=== PATIENT | female | born 1935 | race Caucasian/White ===

== ENCOUNTER 2016-07-18 15:54 | Inpatient (IN) | payer MEDICARE, BC ==
--- NOTE | 2016-07-18 16:10 | Emergency Department Record ---
History of Present Illness - General Chief complaint: Swelling of legs Stated complaint: INFECTION Time Seen by Provider: 07/18/16 16:09 Source: Patient Mode of Arrival: Ambulatory Limitations: No limitations - History of Present Illness Initial comments: The patient is here due to redness and swelling to her L lower leg. She has had a chronic wound to the L 2nd toe and lately it has begun to look worse and appear infected. She did see her PCP in the family practice clinic 5 days ago and was started on Cefdinir. Now the L lower leg is more swollen, and erythematous. She denies any fever, chills, CP, SOB, or AP. The patient was seen in the and sent to the Er. MD Complaint: Extremity swelling Onset/Timin -: Days(s) Location: Left, Lower Leg History of Same: No Radiation: None Severity scale (1-10): 8 Quality: Sharp Consistency: Constant Improves with: Nothing Worsens with: Walking, Weight bearing Associated Symptoms: Denies other symptoms - Related Data Home Medications Medication Instructions Recorded Confirmed Last Taken Dilaudid Pump 1 mg IV DAILY 02/14/14 07/18/16 12/01/14 Sennosides/Docusate Sodium [Senna 2 each PO BID 02/23/15 07/18/16 Unknown Plus] Esomeprazole Magnesium [Nexium 22.3 mg PO DAILY cap 06/07/16 07/18/16 Unknown 24hr] Allergies Allergy/AdvReac Type Severity Reaction Status Date / Time adhesive Allergy Intermediate RASH Unverified 07/13/16 16:24 phenobarbital Allergy Intermediate RASH Unverified 07/13/16 16:24 Sulfa (Sulfonamide Allergy Intermediate VOMITING Unverified 07/13/16 16:24 Antibiotics) Penicillins AdvReac Intermediate NAUSEA AND Unverified 07/13/16 16:24 VOMITING Travel Screening - Travel/Exposure Within Last 30 Days Have you traveled within the last 30 days?: No Review of Systems Constitutional: Denies: Chills, Fever Eyes: Denies: Eye discharge ENT: Denies: Congestion Respiratory: Denies: Cough Past Medical History - SOCIAL HISTORY Smoking Status: Former smoker Alcohol Use: None Drug Use: None - RESPIRATORY Hx Respiratory Disorders: Yes Hx Asthma: Yes Hx COPD: Yes Comment:: allergies cause cough occas - CARDIOVASCULAR Hx Cardio Disorders: Yes Hx Abnormal EKG: Yes Hx Cardiac Cath: Yes (cardiac stents x3) Hx Chest Pain: Yes (2002; 2003; and has angina-last used NTG '2 DAYS AGO) Hx CHF: Yes Hx Edema: Yes (feet) Hx Heart Attack: Yes (2003) Hx Hypertension: Yes (good control w meds) Hx Hypotension: Yes ("occas gets pretty low") Comment:: high cholesterol - NEURO Hx Neuro Disorders: Yes Hx Seizures: No - GI Hx GI Disorders: Yes Hx Abdominal Pain: Yes Hx Diverticulitis: Yes Hx Reflux: Yes Hx Irritable Bowel: Yes Hx Nausea/Vomiting: Yes Comment:: Lupus - Hx Genitourinary Disorders: Yes Hx Bladder Problem: Yes (leaky bladder) Hx Renal Disease: Yes Hx UTI: Yes Comment:: vidal cath removed 01/07 - ENDOCRINE Hx Endocrine Disorders: Yes Hx Diabetes: No - MUSCULOSKELETAL Hx Musculoskeletal Disorders: Yes Hx Arthritis: Yes (hips/knees/back) Hx Fibromyalgia: Yes Hx Gout: Yes Hx Musculoskeletal Disease: Yes ("sharko disease"-feet) Hx Osteoporosis: Yes (was 5'11") Comment:: back problems; leg pains, fracture right ankle - PSYCH Hx Psych Problems: Yes Hx Depression: Yes - HEMATOLOGY/ONCOLOGY Hx Hematology/Oncology Disorders: No Family Medical History Any Significant Family History?: Yes Hx Cancer: Father, Mother, Brother/Sister Hx Dementia: Mother Hx Heart Disease: Father Hx HTN: Father Physical Exam - General General Appearance: Alert, Oriented x3, Cooperative, No acute distress - Head Head exam: Atraumatic, Normocephalic - Eye Eye exam: Normal appearance, PERRL - Neck Neck exam: Normal inspection, Full ROM. negative: Tenderness - Respiratory Respiratory exam: Normal lung sounds bilaterally. negative: Respiratory distress - Cardiovascular Cardiovascular Exam: Regular rate, Normal rhythm, Normal heart sounds - Extremities Extremities exam: negative: Normal inspection (The patient has a L Charcot foot. There is a chronic wound to the medial L 2nd toe with mild L foot swelling and erythema. The L lower leg is mildly swollen and intermittently erythematous and warm. There is no thign, posterior knee or calf tenderness.) Course Vital Signs 07/18/16 15:58 Temperature 98.4 F Pulse Rate 70 Respiratory 20 Rate Blood Pressure 166/65 Pulse Ox 92 L - Reevaluation(s) Reevaluation #1: The patient is doing well. She denies any new issues or problems. I did discuss the lab and xray results with the patient and did discuss the need for hospital admission. I also did discuss the case with Dr. Platt and she accepts the admission. 07/18/16 17:28 Medical Decision Making - Data Complexity MDM Data: Labs Ordered and/or Reviewed, X-Ray Ordered and/or Reviewed - Lab Data Result diagrams: 07/18/16 16:20 07/18/16 16:20 - Radiology Data Radiology results: Report reviewed (L foot: chronic changes with no obvious osteomyelitis or fx or dislocation.) Disposition Disposition: Admit Clinical Impression: Left leg cellulitis Disposition: Still a Patient at [facility] Decision to Admit: Admit from ER Decision to Admit Date: 07/18/16 Decision to Admit Time: 17:30 Accepting Physician: Giulia Time Discussed w/Accepting Physician: 17:30 Condition: (2) Stable Forms: Patient Portal Access Time of Disposition: 17:30
[2016-07-18] MEDS ORDERED: CLINDAMYCIN 600MG/4ML VIAL 600 MG in 0.9 % SODIUM CHLORIDE 100ML 100 ML IV ONE (16:14)
[2016-07-18 16:30] LABS: BASO % 0.3 % (0-6); EOS % 1.5 % (0-6); GRAN % 54.5 % (47-80); HEMATOCRIT 39.2 % (35.0-47.0); HEMOGLOBIN 12.1 gm/dl (11.6-16.0); LYMPH % 36.2 % (16-45); MEAN CELL VOLUME 93.1 fl (81-97); MEAN CORPUSCULAR HEMOGLOBIN 28.7 pg (27-33); MEAN CORPUSCULAR HGB CONC 30.9 g/dl (32-36); MEAN PLATELET VOLUME 9.1 fl (7.4-10.4); MONO % 7.5 % (0-9); PLATELET COUNT 254 K/uL (130-400); RED BLOOD COUNT 4.21 M/uL (3.80-5.40); RED CELL DISTRIBUTION WIDTH 17.4 % (11.5-14.5); WHITE BLOOD COUNT W/O DIFF 8.6 K/uL (4.2-12.2)
[2016-07-18 16:45] LABS: ANION GAP 8.9 (7-16); BLOOD UREA NITROGEN 10 mg/dL (7-17); C-REACTIVE PROTEIN 3.2 mg/dL (0.0-0.9); CARBON DIOXIDE 37.1 mmol/L (22-30); CREATININE 0.7 mg/dL (0.52-1.04); EST GLOMERULAR FILTRATION RATE > 60 ml/min; GLUCOSE,RANDOM 132 mg/dL (70-110)
[2016-07-18 17:06] LABS: ERYTHROCYTE SEDIMENTATION RATE 21 mm/hr (0-30)
[2016-07-18 18:14] LABS: URINE APPEARANCE CLEAR; URINE BILIRUBIN NEGATIVE (NEGATIVE); URINE BLOOD NEGATIVE (NEGATIVE); URINE COLOR YELLOW; URINE GLUCOSE (UA) NEGATIVE (NEGATIVE); URINE KETONE NEGATIVE (NEGATIVE); URINE LEUKOCYTE ESTERASE SMALL (NEGATIVE); URINE NITRITE NEGATIVE (NEGATIVE); URINE PROTEIN NEGATIVE (NEGATIVE); URINE UROBILINOGEN 0.2 E.U./dL (0.20 - 1.00)
[2016-07-18 18:21] LABS: URINE RBC NONE SEEN (NONE SEEN)
[2016-07-18 18:22] LABS: URINE BACTERIA NONE SEEN
[2016-07-18] MEDS ORDERED: ACETAMINOPHEN 500 MG TABLET PO PRN (19:09)
[2016-07-18] MEDS ORDERED: PREGABALIN 50 MG CAPSULE PO PRN (19:09)
[2016-07-18] MEDS ORDERED: HYDROXYZINE PAMOATE 25 MG CAPSULE PO PRN (20:05)
[2016-07-18] MEDS: TRAZODONE 50 MG TABLET PO SCH (22:38)
[2016-07-18] MEDS: BACLOFEN 10 MG TABLET PO SCH (22:39)
[2016-07-18] MEDS: SENNOSIDES/DOCUSATE SODIUM UD CAPSULE PO SCH (22:51)
[2016-07-19] MEDS: CLINDAMYCIN 600MG/50ML PREMIX 600 MG/50 ML BAG IVPB SCH ×4 (01:33→23:45)
[2016-07-19] MEDS: PANTOPRAZOLE SODIUM 40 MG TABLET PO SCH (06:24)
[2016-07-19] MEDS: LEVOTHYROXINE SODIUM 75 MCG TABLET PO SCH (06:24)
--- NOTE | 2016-07-19 06:41 | History & Physical ---
History of Present Illness - Date of Service Date of Service for History & Physical: 07/19/16 - History of Present Illness Admitting Diagnosis: 1. Left Leg Cellulitis. History of Present Illness: 81 yo female admitted for LLE cellulitis. PMHx of recurrent osteomyelitis, CHF , CAD, hyperlipidemia, fibromyalgia, current hardward in right foot for trimalleolar fracture, charcot-dinah tooth and TIA in 2013. Previous cardiac stent in 2002 and 2003. Pt has pain pump that was placed 10/2014. Former smoker , quit 30 years ago. Patient presented to our [facility] Department with <24 hours of LLE swelling and erythema. Patient was then directed to our ED for further medical management. Upon presentation to the ED, VSS. afebrile. wbc 8.6. crp 3.2. Left foot x ray: diffuse osteopenia, no acute fx, soft tissue swelling of the first and second digits suspicious for cellulitis. soft tissue swelling of the ankle and hindfoot. Prior to this visit, patient was seen 07/18 in the office and started on Cedinir for suspected early pyelonephritis. In the ED, patient started on IV Clindamycin [address] Sandhu (patient's measurement specialist) consulted and patient admitted for further medical management. This morning, patient lying in bed comfortably with at bedside. Afebrile. She states she feels well. Her LLE swelling and erythema have significantly improved, per . She denies fever, chills, n/v, change in bowel habits, sob, cough, cp or abdominal pain. Tolerating meals well. Patient' s currently on Cefdinir 300 mg BID for suspected pyelonephritis. She denies any pain with urination or hematuria. In addition, patient has two ulcers noted on the left foot. One located on the medial aspect of the left arch and the other on the medial aspect of the left 2nd digit. Patient has wound care coming out to her house for regular treatment /dressing changes. PCP: Deena Aguero PA-C Travel Screening - Travel/Exposure Within Last 30 Days Have you traveled within the last 30 days?: No - Travel/Exposure Within Last Year Have you traveled outside the [place] in the last year?: No - Additonal Travel Details Have you been exposed to anyone with a communicable illness?: No - Travel Symptoms Symptom Screening: None Review of Systems Constitutional: Denies: Chills, Fever Eyes: Denies: Eye discharge ENT: Denies: Congestion Respiratory: Denies: Cough Cardiovascular: Denies: Chest pain, Dyspnea on exertion Gastrointestinal: Denies: Abdominal pain, Constipation, Diarrhea, Nausea Musculoskeletal: Reports: Gout (history of) Skin: Reports: Change in color (LLE erythema), Other (ulcer to the arch of left foot, ulcer 2nd digit medial aspect) Neurological: Denies: Abnormal gait, Confusion Hematological/Lymphatic: Denies: Anemia Past Medical History - SOCIAL HISTORY Smoking Status: Former smoker - RESPIRATORY Hx Respiratory Disorders: Yes Hx Asthma: Yes Hx COPD: Yes Comment:: allergies cause cough occas - CARDIOVASCULAR Hx Cardio Disorders: Yes Hx Abnormal EKG: Yes Hx Cardiac Cath: Yes (cardiac stents x3) Hx Chest Pain: Yes (2002; 2003; and has angina-last used NTG '2 DAYS AGO) Hx CHF: Yes Hx Edema: Yes (feet) Hx Heart Attack: Yes (2003) Hx Hypertension: Yes (good control w meds) Hx Hypotension: Yes ("occas gets pretty low") Comment:: high cholesterol - NEURO Hx Neuro Disorders: Yes Hx Seizures: No - GI Hx GI Disorders: Yes Hx Abdominal Pain: Yes Hx Diverticulitis: Yes Hx Reflux: Yes Hx Irritable Bowel: Yes Hx Nausea/Vomiting: Yes Comment:: Lupus - Hx Genitourinary Disorders: Yes Hx Bladder Problem: Yes (leaky bladder) Hx Renal Disease: Yes Hx UTI: Yes Comment:: vidal cath removed 01/07 - ENDOCRINE Hx Endocrine Disorders: Yes Hx Diabetes: No - MUSCULOSKELETAL Hx Musculoskeletal Disorders: Yes Hx Arthritis: Yes (hips/knees/back) Hx Fibromyalgia: Yes Hx Gout: Yes Hx Musculoskeletal Disease: Yes ("sharko disease"-feet) Hx Osteoporosis: Yes (was 5'11") Comment:: back problems; leg pains, fracture right ankle - PSYCH Hx Psych Problems: Yes Hx Depression: Yes - HEMATOLOGY/ONCOLOGY Hx Hematology/Oncology Disorders: No Family Medical History Any Significant Family History?: Yes Hx Cancer: Father, Mother, Brother/Sister Hx Dementia: Mother Hx Heart Disease: Father Hx HTN: Father H&P Meds/Allergies - Allergies Allergies: Allergies Allergy/AdvReac Type Severity Reaction Status Date / Time adhesive Allergy Intermediate RASH Unverified 06/07/17 16:24 phenobarbital Allergy Intermediate RASH Unverified 07/13/16 16:24 Sulfa (Sulfonamide Allergy Intermediate VOMITING Unverified 07/13/16 16:24 Antibiotics) Penicillins AdvReac Intermediate NAUSEA AND Unverified 07/13/16 16:24 VOMITING - Home Medications Home Medications Medication Instructions Recorded Confirmed Last Taken Dilaudid Pump 1 mg IV DAILY 02/14/14 07/18/16 12/01/14 Sennosides/Docusate Sodium [Senna 2 each PO BID 02/23/15 07/18/16 Unknown Plus] Esomeprazole Magnesium [Nexium 22.3 mg PO DAILY cap 06/07/16 07/18/16 Unknown 24hr] - Active Medications Active Medications: Current Medications Acetaminophen (Tylenol 500mg Tab) 500 mg PO Q6H PRN PRN Reason: PAIN/TEMP Hydrocodone Bitart/Acetaminophen (Pharr 10mg/325mg) 1 each PO Q12HR PRN PRN Reason: Pain - General Allopurinol (Zyloprim) 100 mg PO DAILY [facility] Baclofen (Lioresal) 10 mg PO TID [facility] Last Admin: 07/18/16 22:39 Dose: 10 mg Escitalopram Oxalate (Lexapro) 20 mg PO QHS [facility] Furosemide (Lasix) 40 mg PO DAILY [facility] Hydroxyzine Pamoate (Vistaril) 100 mg PO TID PRN PRN Reason: ITCHING Clindamycin Phosphate (Cleocin 600 [id number]) 600 mg in 50 mls @ 100 mls/ hr IVPB Q8H [facility] Last Infusion: 07/19/16 03:00 Dose: Infused Levothyroxine Sodium (Synthroid) 75 mcg PO DAILYTHY [facility] Last Admin: 07/19/16 06:24 Dose: 75 mcg Pantoprazole Sodium (Protonix) 40 mg PO DAILYAC [facility] Last Admin: 07/19/16 06:24 Dose: 40 mg Patient Own Med: (Estradiol 2 Mg) 1 each PO DAILY [facility] Potassium Chloride (Klor-Con) 10 meq PO DAILY [facility] Pregabalin (Lyrica) 50 mg PO BID PRN PRN Reason: Analgesia Senna/Docusate Sodium (Senna Plus) 2 each PO BID [facility] Last Admin: 07/18/16 22:51 Dose: Not Given Trazodone HCl (Desyrel) 200 mg PO QHS [facility] Last Admin: 07/18/16 22:38 Dose: 200 mg Valsartan (Diovan) 80 mg PO DAILY [facility] Physical Exam - Vital Signs Vital Signs: Vital Signs - Last 24 Hrs Temp Pulse Resp BP Pulse Ox 07/19/16 01:24 97.9 F 70 20 172/71 96 07/18/16 19:14 68 07/18/16 18:35 98.6 F 66 18 132/68 98 - General General Appearance: Alert, Oriented x3, Cooperative, No acute distress Limitations: No limitations - Head Head exam: Atraumatic, Normocephalic - Eye Eye exam: Normal appearance, PERRL - ENT ENT exam: Normal exam - Neck Neck exam: Normal inspection, Full ROM. negative: Tenderness - Respiratory Respiratory exam: Normal lung sounds bilaterally. negative: Respiratory distress - Cardiovascular Cardiovascular Exam: Regular rate, Normal rhythm, Normal heart sounds - GI/Abdominal GI/Abdominal exam: Soft - Rectal Rectal exam: Deferred - exam: Deferred - Extremities Extremities exam: negative: Normal inspection (The patient has a L Charcot foot. There is a chronic wound to the medial L 2nd toe with mild L foot swelling and erythema. The L lower leg is mildly swollen and intermittently erythematous and warm. There is no thign, posterior knee or calf tenderness.) - Back Back exam: Reports: Normal inspection, Full ROM - Neurological Neurological exam: Alert, Oriented X3 - Psychiatric Psychiatric exam: Normal affect, Normal mood. negative: Agitated - Skin Skin exam: Erythema (LLE), Other (ulcer left arch, left 2 nd medial aspect) Results - Labs Result Diagrams: 07/18/16 16:20 07/18/16 16:20 VTE H&P Assessment - Risk for VTE Risk for VTE: Yes Risk Level: Moderate (age, decreased mobility) Risk Assessment Date: 07/19/16 Risk Assessment Time: 10:00 VTE Orders Placed or Will Be Placed: Yes Plan - Inpatient Certification Inpatient Certification: Admit to inpatient care: Based on my medical assessment, after consideration of patient's risk factors (age, co-morbidities and patient presenting symptoms and acuity), I expect that this patient will remain in the hospital greater than or equal to two midnights and that the services needed warrant inpatient care because: Patient Risk Factors: [cellulitis LLE, left foot, h/o osteomyelitis] Estimated length of stay: [48-72 hours] The patient may reasonably be expected to be discharged or transferred to a hospital within 96 hours after admission to [facility]. Services needed: [IV antibiotic, specialist consult, monitoring of fever, vital signs, pain control] Post hospital care (if known): [home, health services] I certify that my determination is in accordance with my understanding of Medicare requirements for reasonable and necessary inpatient services. 07/19/16 11:49 - Detailed Diagnosis and Plan (1) Left leg cellulitis Current Visit: Yes Status: Acute Base Code: L03.116 - CELLULITIS OF LEFT LOWER LIMB Comment: 07/19 - left foot x ray: diffuse osteopenia, no acute fx, soft tissue swelling of the first and second digits suspicious for cellulitis. soft tissue swelling of the ankle and hindfoot. - afebrile. WBC normal. CRP 3.2 - Dr. Sandhu (Podiatry) consulted - Continue IV Clindamycin 600 mg Q 8 hours - adequate pain control - monitor closely. Consider further imaging with LLE MRI if osteomyelitis suspected. (2) Cellulitis of left foot Current Visit: Yes Status: Acute Base Code: L03.116 - CELLULITIS OF LEFT LOWER LIMB Comment: 07/19- - plan as stated above - keep site clean - dressing change every am (3) Pyelonephritis Current Visit: Yes Status: Acute Base Code: N12 - TUBULO-INTERSTITIAL NEPHRITIS, NOT SPCF ACUTE OR CHRONIC Comment: 07/19 - continue outpatient Cefdinir 300 mg BID (completed 07/27) (4) Full code status Current Visit: Yes Status: Acute Base Code: Z78.9 - OTHER SPECIFIED HEALTH STATUS Comment: 07/19- pt is full code (5) DVT prophylaxis Current Visit: Yes Status: Acute Base Code: [id number] - Comment: 07/19- moderate risk- age, decreased mobility - lovenox 40 mg sq daily
--- NOTE | 2016-07-19 07:12 | RADIOLOGY REPORT ---
EXAM: LEFT FOOT, THREE VIEWS HISTORY: LEFT TOE INFECTION. TECHNIQUE: Three views of the left foot were obtained. Encounter: Initial. FINDINGS: There is diffuse osteopenia. Marked valgus deformity centered at the mid foot appears progressed in the interval. No acute fracture nor destructive bone lesion is seen. There are diffuse degenerative changes most pronounced within the medial tarsal-metatarsal joints. No definite lytic or blastic bone lesion. There is soft tissue swelling of the first and second digits suspicious for cellulitis. There is soft tissue swelling of the ankle diffusely. There is flattening of the plantar arch new since the prior examination. IMPRESSION: 1. DIFFUSE OSTEOPENIA LIMITS EVALUATION. 2. NO ACUTE FRACTURE NOR DISLOCATION. 3. INTERVAL PROGRESSION OF VALGUS DEFORMITY CENTERED AT THE TARSAL-METATARSAL JOINTS ASSOCIATED WITH NEW FLATTENING OF THE PLANTAR ARCH. 4. NO DEFINITE OSSEOUS EVIDENCE OF ACUTE OSTEOMYELITIS. 5. SOFT TISSUE SWELLING OF THE FIRST AND SECOND DIGITS SUSPICIOUS FOR CELLULITIS. SOFT TISSUE SWELLING OF THE ANKLE AND HINDFOOT. JOB NUMBER: [id number] MTDD
[2016-07-19] MEDS ORDERED: HYDROMORPHONE IV SCH (10:00)
[2016-07-19] MEDS: CEFDINIR 300 MG CAPSULE PO SCH ×2 (10:23→21:16)
[2016-07-19] MEDS: POTASSIUM CHLORIDE 10 MEQ TAB PO SCH (10:24)
[2016-07-19] MEDS: VALSARTAN 80 MG TAB PO SCH (10:24)
[2016-07-19] MEDS: ALLOPURINOL 100 MG TAB PO SCH (10:25)
[2016-07-19] MEDS: BACLOFEN 10 MG TABLET PO SCH ×3 (10:25→21:16)
[2016-07-19] MEDS: FUROSEMIDE 40 MG TABLET PO SCH (10:25)
[2016-07-19] MEDS: HYDROCODONE/APAP 10/325 TABLET PO PRN ×2 (10:25→21:30)
[2016-07-19] MEDS: ESTRADIOL 2 MG PO SCH (10:26)
[2016-07-19] MEDS: SENNOSIDES/DOCUSATE SODIUM UD CAPSULE PO SCH ×2 (10:26→21:23)
[2016-07-19] MEDS: ENOXAPARIN 40 MG/0.4 ML SYR SQ SCH (13:26)
[2016-07-19] MEDS: TRAZODONE 50 MG TABLET PO SCH (21:16)
[2016-07-19] MEDS ORDERED: ESCITALOPRAM 10 MG TABLET PO SCH (22:00)
[2016-07-20] MEDS: PANTOPRAZOLE SODIUM 40 MG TABLET PO SCH (06:25)
[2016-07-20] MEDS: LEVOTHYROXINE SODIUM 75 MCG TABLET PO SCH (06:25)
--- NOTE | 2016-07-20 06:31 | Discharge Summary ---
Providers Discharge Summary Date: 07/20/16 Date of admission: 07/18/16 18:07 Expected Date of Discharge: 07/20/16 Attending physician: HARJIT SCHULTZ Primary care physician: STEPHANIE BENZ Physical Exam - Vital Signs Vital Signs: Vital Signs - Last 24 Hrs Temp Pulse Resp BP BP Pulse Ox 07/20/16 00:17 98.0 F 63 16 154/67 93 L 07/19/16 21:00 16 07/19/16 17:00 66 14 144/66 95 07/19/16 13:27 99.2 F 157/79 07/19/16 09:00 99.2 F 62 14 157/79 91 L - General General Appearance: Alert, Oriented x3, Cooperative, No acute distress Limitations: No limitations - Head Head exam: Atraumatic, Normocephalic - Eye Eye exam: Normal appearance, PERRL - ENT ENT exam: Normal exam - Neck Neck exam: Normal inspection, Full ROM. negative: Tenderness - Respiratory Respiratory exam: Normal lung sounds bilaterally. negative: Respiratory distress - Cardiovascular Cardiovascular Exam: Regular rate, Normal rhythm, Normal heart sounds - GI/Abdominal GI/Abdominal exam: Soft - Rectal Rectal exam: Deferred - exam: Deferred - Extremities Extremities exam: negative: Normal inspection (The patient has a L Charcot foot. There is a chronic wound to the medial L 2nd toe with mild L foot swelling and erythema. The L lower leg is mildly swollen and intermittently erythematous and warm. There is no thign, posterior knee or calf tenderness.) - Back Back exam: Reports: Normal inspection, Full ROM - Neurological Neurological exam: Alert, Oriented X3 - Psychiatric Psychiatric exam: Normal affect, Normal mood. negative: Agitated - Skin Skin exam: Erythema (LLE, improving), Other (ulcer left arch, left 2 nd medial aspect) Hospitalization - Hospitalization Admission Diagnosis: 1. Left Leg Cellulitis. - Problem List/Discharge Diagnosis (1) Left leg cellulitis Current Visit: Yes Status: Acute Base Code: L03.116 - CELLULITIS OF LEFT LOWER LIMB Comment: 07/20 - left foot x ray: diffuse osteopenia, no acute fx, soft tissue swelling of the first and second digits suspicious for cellulitis. soft tissue swelling of the ankle and hindfoot. - afebrile. WBC normal. CRP 3.2 upon admission - Patient evaluated by Dr. Sandhu (Podiatry) who scheduled outpatient visit for likely debridement. - PO Clindamycin 300 mg QID sent to pharmacy- complete 10 day course. - adequate pain control - monitor closely for worsening erythema or swelling. Will consider further imaging, such as MRI, if that's the case. - f/up with Stephanie Tuesday 07/25 @ 3:20pm & Dr. Sandhu on Wednesday 07/26. (2) Cellulitis of left foot Current Visit: Yes Status: Acute Base Code: L03.116 - CELLULITIS OF LEFT LOWER LIMB Comment: 07/20- - plan as stated above - continue po antibiotic - keep site clean - dressing change every am - continue home health services (3) Pyelonephritis Current Visit: Yes Status: Acute Base Code: N12 - TUBULO-INTERSTITIAL NEPHRITIS, NOT SPCF ACUTE OR CHRONIC Comment: 07/20 - continue outpatient Cefdinir 300 mg BID (complete 07/27 for 10 day course) (4) Full code status Current Visit: Yes Status: Acute Base Code: Z78.9 - OTHER SPECIFIED HEALTH STATUS Comment: 07/20- pt remained full code - Hospitalization Course Disposition: Home Health Service Hospital Course: 81 yo female admitted for LLE cellulitis. PMHx of recurrent osteomyelitis, CHF , CAD, hyperlipidemia, fibromyalgia, current hardward in right foot for trimalleolar fracture, charcot-dinah tooth and TIA in 2013. Previous cardiac stent in 2002 and 2003. Pt has pain pump that was placed 10/2014. Former smoker , quit 30 years ago. Patient presented to our [facility] with <24 hours of LLE swelling and erythema. Patient was then directed to our ED for further medical management. Upon presentation to the ED, VSS. afebrile. wbc 8.6. crp 3.2. Left foot x ray: diffuse osteopenia, no acute fx, soft tissue swelling of the first and second digits suspicious for cellulitis. soft tissue swelling of the ankle and hindfoot. Prior to this visit, patient was seen 07/18 in the office and started on Cedinir for suspected early pyelonephritis. In the ED, patient started on IV Clindamycin [address] Sandhu (patient's change management consultant) consulted and patient admitted for further medical management. This morning, patient lying in bed comfortably with at bedside. Afebrile. She states she feels well. Her LLE swelling and erythema have significantly improved, per . She denies fever, chills, n/v, change in bowel habits, sob, cough, cp or abdominal pain. Tolerating meals well. Patient' s currently on Cefdinir 300 mg BID for suspected pyelonephritis. She denies any pain with urination or hematuria. In addition, patient has two ulcers noted on the left foot. One located on the medial aspect of the left arch and the other on the medial aspect of the left 2nd digit. Patient has wound care coming out to her house for regular treatment /dressing changes. PCP: Stephanie Benz PA-C 07/20/16: pt feeling well. Her LLE erythema/swelling continue to improve. patient denies fever, chills, n/v, worsening pain, or diff w/ ambulation. tolerating meals. patient anxious to get home. Condition at Discharge: (2) Stable Discharge Medications - Discharge Medications Prescriptions: Clindamycin HCl 300 mg PO QID #32 capsule Home Medications: Ambulatory Orders Dilaudid Pump 1 mg IV DAILY 02/14/14 [Last Taken 12/01/14] Sennosides/Docusate Sodium [Senna Plus] 2 each PO BID 02/23/15 [Last Taken Unknown] Esomeprazole Magnesium [Nexium 24Hr] 22.3 mg PO DAILY cap 06/07/16 [Last Taken Unknown] Clindamycin HCl 300 mg PO QID #32 capsule 07/20/16 [Last Taken Unknown] Discharge Plan - Discharge Instructions Activity at Discharge: Resume Usual Activities As Tolerated Diet at Discharge: Regular Diet Additional Instructions: Continue home medications. berry picker new antibiotic (Clindamycin) up from pharmacy and take as directed. Be sure to take Cefdinir (antibiotic for urinary infection) one dose this evening and then twice daily until 07/27/16. Monitor left lower leg for any worsening redness/swelling/pain. Continue to follow home wound cares recommendations. Follow up with Dr. Sandhu on Monday as schedule and justice/ Stephanie in the [facility] Monday at 3:20pm. Please return to our ED in the meantime re any temperature >102, worsening lower extremity redness/swelling or pain.
[2016-07-20] MEDS: CLINDAMYCIN 600MG/50ML PREMIX 600 MG/50 ML BAG IVPB SCH (07:45)
[2016-07-20] MEDS: POTASSIUM CHLORIDE 10 MEQ TAB PO SCH (10:52)
[2016-07-20] MEDS: ENOXAPARIN 40 MG/0.4 ML SYR SQ SCH (10:52)
[2016-07-20] MEDS: BACLOFEN 10 MG TABLET PO SCH (10:52)
[2016-07-20] MEDS: FUROSEMIDE 40 MG TABLET PO SCH (10:52)
[2016-07-20] MEDS: CEFDINIR 300 MG CAPSULE PO SCH (10:52)
[2016-07-20] MEDS: VALSARTAN 80 MG TAB PO SCH (10:52)
[2016-07-20] MEDS: ALLOPURINOL 100 MG TAB PO SCH (10:52)
[2016-07-20] MEDS: ESTRADIOL 2 MG PO SCH (10:53)
[2016-07-20] MEDS: SENNOSIDES/DOCUSATE SODIUM UD CAPSULE PO SCH (10:55)
== END 2016-07-20 11:40 | disposition home health service (06) ==
LOC: ER 15:54 → MEDSURG 18:07
PROVIDERS: ADMIT Family Medicine; ATTEND Family Medicine
DX: L03.116 Cellulitis of left lower limb (principal); N12 Tubulo-interstitial nephritis, not specified as acute or chronic; Z78.9 Other specified health status; I50.9 Heart failure, unspecified; L98.499 Non-pressure chronic ulcer of skin of other sites with unspecified severity; E78.00 Pure hypercholesterolemia, unspecified; M14.679 Charcot's joint, unspecified ankle and foot; I10 Essential (primary) hypertension
CPT/HCPCS: 80048; 81001; 85025; 85651; 86140; 96365; 99223; 99233; 99239; 99285; J1650

== ENCOUNTER 2017-01-13 05:40 | Day surgery (SDC) | payer MEDICARE, BC ==
[2017-01-13] MEDS ORDERED: LIDOCAINE 2% MDV (20MG/ML) 20ML VIAL IV ONE (05:41)
[2017-01-13] MEDS ORDERED: BUPIVACAINE 0.25% MPF 30ML VIAL IVP ONE (05:41)
[2017-01-13] MEDS ORDERED: CEFAZOLIN 2 Gram 2 GM/50 ML BAG IVPB ONE (06:00)
--- NOTE | 2017-01-13 12:40 | Operative Note ---
DATE OF SURGERY: 01/13/2017 Surgeon: Avi Sandhu DPM PREOPERATIVE DIAGNOSIS: Subacute osteomyelitis left fourth toe. POSTOPERATIVE DIAGNOSIS: Subacute osteomyelitis left fourth toe. OPERATION: Partial amputation left fourth toe. Anesthesia: Local. HEMOSTASIS: Left ankle tourniquet at 250 mmHg. ESTIMATED BLOOD LOSS: Minimal. MATERIALS: None. INJECTABLES: 10 mL of 1:1 mixture of 2% lidocaine and 0.5% Marcaine. SPECIMENS: Left fourth toe. COMPLICATIONS: None. PROCEDURE: The patient is brought into the operating room, placed in the supine position. A well-padded tourniquet was placed on the left ankle after vitals were obtained and the patient was deemed stable. 10 mL of a 1:1 mixture of 2% lidocaine and 0.5% Marcaine were injected as a proximal fourth digital block and the left foot was prepped and draped in the usual manner. A time-out was taken to confirm correct patient, identify the correct site of surgery, and correct procedure. When everybody in the room was in agreement, the leg was exsanguinated and the tourniquet inflated to 250 mmHg. Attention was directed to the fourth digit. A standard fish-mouth incision was made for a digital amputation. It was done over the middle phalanx to excise the dorsal lateral ulcer. It was deepened down to the subcutaneous tissues, careful to identify and cut down the vascular structures and cauterizing any bleeding vessels. Dissection was continued through the subcutaneous layer, down to the level of the extensor tendon and joint capsule, which was transected through the joint, then released plantarly. The plantar flap was then dissected off the distal phalanx in a full-thickness flap and then disarticulated and removed. The head of the middle phalanx was resected with a bone cutter and then the roughened edges smoothed with a rasp. The area was palpated to make sure there were not any bony projections. When it was smooth and satisfactory, the wound was irrigated thoroughly with normal saline and then the incision was closed with 3-0 nylon. Xeroform and dry sterile dressing were applied to the left foot. The tourniquet was released. Capillary refill returned to all digits in the left foot. The patient tolerated the above procedure and anesthesia well, left the operating room and taken to recovery with vital signs stable. KIMMY
== END 2017-01-13 07:55 | disposition home or self-care (01) ==
LOC: SUR 05:40
PROVIDERS: ATTEND Podiatrist
DX: M86.672 Other chronic osteomyelitis, left ankle and foot (principal); E03.9 Hypothyroidism, unspecified
CPT/HCPCS: 28825; 88305; 88311; J0690

== ENCOUNTER 2017-04-07 15:42 | Inpatient (IN) | payer MEDICARE, BC ==
--- NOTE | 2017-04-07 16:23 | Emergency Department Record ---
History of Present Illness - General Chief complaint: Swelling of legs Stated complaint: PAIN IN RT FOOT Time Seen by Provider: 04/07/17 16:12 Source: Patient Mode of Arrival: Wheelchair Limitations: No limitations - History of Present Illness Initial comments: The patient is here due to redness to the R lower leg and worsening of her R foot ulcer. She has a LONG hx of chronic wounds to the feet and now for the last day has had increased redness and swelling to the R leg. She denies any trauma, fever, chills, or injury. The patient denies any pain but does has neuropathy so she usually does not feel any discomfort. MD Complaint: Extremity swelling Onset/Timin -: Days(s) Location: Right, Lower Leg Consistency: Constant Improves with: Nothing Worsens with: Nothing Associated Symptoms: Denies other symptoms - Related Data Allergies Allergy/AdvReac Type Severity Reaction Status Date / Time adhesive Allergy Intermediate RASH Verified 04/07/17 16:01 phenobarbital Allergy Intermediate RASH Verified 04/07/17 16:01 Sulfa (Sulfonamide Allergy Intermediate VOMITING Verified 04/07/17 16:01 Antibiotics) bupropion HCl AdvReac Intermediate ALTERED Verified 04/07/17 16:01 [From Wellbutrin] MENTAL STATUS Penicillins AdvReac Intermediate NAUSEA AND Verified 04/07/17 16:01 VOMITING Travel Screening - Travel/Exposure Within Last 30 Days Have you traveled within the last 30 days?: No - Travel/Exposure Within Last Year Have you traveled outside the [place] in the last year?: No - Additonal Travel Details Have you been exposed to anyone with a communicable illness?: No - Travel Symptoms Symptom Screening: None Review of Systems Constitutional: Denies: Chills, Fever Eyes: Denies: Eye discharge ENT: Denies: Congestion Respiratory: Denies: Cough, Dyspnea Past Medical History - SOCIAL HISTORY Smoking Status: Former smoker Alcohol Use: None Drug Use: None - RESPIRATORY Hx Respiratory Disorders: Yes Hx Asthma: Yes (no meds -doing well.) Comment:: allergies cause cough occas - CARDIOVASCULAR Hx Cardio Disorders: Yes Hx Abnormal EKG: Yes Hx Cardiac Cath: Yes (cardiac stents x3) Hx Chest Pain: Yes (angina- used NTG 4 weeks ago) Hx Edema: Yes (feet) Hx Heart Attack: Yes (2003) Hx Hypertension: Yes (good control w meds) Hx Hypotension: Yes ("occas gets pretty low") Hx Coronary Artery Disease: Yes Hx Coronary Stent: Yes Comment:: high cholesterol - NEURO Hx Neuro Disorders: Yes Hx Neuropathy: Yes (feet & hands real bad) Hx TIA: Yes (long ago) - GI Hx GI Disorders: Yes Hx Abdominal Pain: Yes Hx Reflux: Yes (used to take nexium) Hx Irritable Bowel: Yes (constipation) Hx Nausea/Vomiting: Yes Hx Ulcer: Yes (long ago-has "sour stomach") Comment:: Lupus - Hx Genitourinary Disorders: Yes Hx Bladder Problem: Yes (leaky bladder) Hx Renal Disease: Yes (from high doses of Lyrica) Hx UTI: Yes Comment:: vidal cath removed 01/07 - ENDOCRINE Hx Endocrine Disorders: Yes Hx Thyroid Disease: Yes - MUSCULOSKELETAL Hx Musculoskeletal Disorders: Yes Hx Arthritis: Yes (hips/knees/back) Hx Fibromyalgia: Yes Hx Gout: Yes Hx Musculoskeletal Disease: Yes ("sharko disease"-feet) Hx Osteoporosis: Yes (was 5'11") Comment:: back problems; leg pains, fracture right ankle - PSYCH Hx Psych Problems: Yes Hx Anxiety: Yes Hx Depression: Yes - HEMATOLOGY/ONCOLOGY Hx Hematology/Oncology Disorders: No Family Medical History Any Significant Family History?: No Hx Cancer: Father, Mother, Brother/Sister Hx Dementia: Mother Hx Heart Disease: Father Hx HTN: Father Physical Exam - General General Appearance: Alert, Oriented x3, Cooperative, No acute distress - Head Head exam: Atraumatic, Normocephalic, Normal inspection - Eye Eye exam: Normal appearance, PERRL - Neck Neck exam: Normal inspection, Full ROM. negative: Tenderness - Respiratory Respiratory exam: Normal lung sounds bilaterally. negative: Respiratory distress - Cardiovascular Cardiovascular Exam: Regular rate, Normal rhythm, Normal heart sounds - GI/Abdominal GI/Abdominal exam: Soft, Normal bowel sounds. negative: Tenderness - Extremities Extremities exam: negative: Normal inspection (There is erythema and warmth to the anterior R lower leg and foot. There does appear to be a worsening foot ulcer to the R foot plantar surface over the ball of the foot.), Tenderness Course Vital Signs 04/07/17 16:11 Temperature 99.7 F H Pulse Rate [ 90 Pulse Ox Probe] Respiratory 20 Rate Blood Pressure 157/105 [Left Arm] Pulse Ox 92 L - Reevaluation(s) Reevaluation #1: The patient is doing OK at this time. She denies any new issues, pain, or any trouble breathing. I did explain to her that we will need to admit the patient to the hospital for IV Abx and she does agree with the plan. I also did discuss the case with Dr. Amin and he does accept the patient to [facility]. 04/07/17 17:51 Medical Decision Making - Data Complexity MDM Data: Labs Ordered and/or Reviewed, X-Ray Ordered and/or Reviewed - Lab Data Result diagrams: 04/07/17 16:42 04/07/17 16:42 - Radiology Data Radiology results: Report reviewed (R foot: No acute changes.) Disposition Disposition: Admit Clinical Impression: Cellulitis of right lower extremity Disposition: Still a Patient at [facility] Decision to Admit: Admit from ER Decision to Admit Date: 04/07/17 Decision to Admit Time: 17:53 Accepting Physician: Eloisa Time Discussed w/Accepting Physician: 17:53 Condition: (2) Stable Time of Disposition: 17:53 Quality - Quality Measures Quality Measures: N/A - Blood Pressure Screening View Details: Yes Does Patient Have Any of the Following: Active Dx of HTN Blood Pressure Classification: Hypertensive Reading Systolic Measurement: 157 Diastolic Measurement: 105 Screening for High Blood Pressure: Patient Exclusion, Hx of HTN [[id number]]
[2017-04-07 16:49] LABS: BASO % 0.2 % (0-6); EOS % 0.7 % (0-6); GRAN % 75.4 % (47-80); HEMATOCRIT 42.3 % (35.0-47.0); HEMOGLOBIN 13.5 gm/dl (11.6-16.0); MEAN CELL VOLUME 99.5 fl (81-97); MEAN CORPUSCULAR HEMOGLOBIN 31.8 pg (27-33); MEAN CORPUSCULAR HGB CONC 31.9 g/dl (32-36); MONO % 5.7 % (0-9); PLATELET COUNT 257 K/uL (130-400); RED BLOOD COUNT 4.25 M/uL (3.80-5.40); RED CELL DISTRIBUTION WIDTH 13.9 % (11.5-14.5); WHITE BLOOD COUNT W/O DIFF 9.8 K/uL (4.2-12.2)
[2017-04-07] MEDS ORDERED: CLINDAMYCIN 600MG/50ML PREMIX 600 MG/50 ML BAG IVPB ONE (16:52)
[2017-04-07 17:07] LABS: BLOOD UREA NITROGEN 9 mg/dL (8-23); C-REACTIVE PROTEIN 5.52 mg/dL (<0.5); CREATININE 0.6 mg/dL (0.5-0.9); EST GLOMERULAR FILTRATION RATE > 60 mL/min; GLUCOSE,RANDOM 134 mg/dL (74-109)
[2017-04-07] MEDS ORDERED: LEVOTHYROXINE SODIUM 75 MCG TABLET PO SCH (19:22)
[2017-04-07] MEDS ORDERED: HYDROXYZINE PAMOATE 25 MG CAPSULE PO PRN (19:35)
[2017-04-07] MEDS ORDERED: HYDROMORPHONE MC SCH (19:45)
[2017-04-07] MEDS: CLINDAMYCIN 600MG/50ML PREMIX 600 MG/50 ML BAG IVPB SCH (20:39)
[2017-04-07] MEDS ORDERED: ONDANSETRON 4 MG ODT TABLET SL PRN (20:43)
[2017-04-07] MEDS: HYDROCODONE/APAP 10/325 TABLET PO PRN (20:54)
[2017-04-07] MEDS: PREGABALIN 50 MG CAPSULE PO PRN (20:54)
[2017-04-07] MEDS: TRAZODONE 50 MG TABLET PO SCH (23:29)
[2017-04-08] MEDS: CLINDAMYCIN 600MG/50ML PREMIX 600 MG/50 ML BAG IVPB SCH ×3 (03:29→18:56)
[2017-04-08] MEDS: LEVOTHYROXINE SODIUM 75 MCG TABLET PO SCH (06:32)
[2017-04-08] MEDS: ACETAMINOPHEN 500 MG TABLET PO PRN (08:02)
[2017-04-08] MEDS: VENLAFAXINE ER 75 MG CAPSULE PO SCH (09:17)
[2017-04-08] MEDS: FUROSEMIDE 40 MG TABLET PO SCH (09:17)
[2017-04-08] MEDS: POTASSIUM CHLORIDE 10 MEQ TAB PO SCH (09:17)
[2017-04-08] MEDS: ALLOPURINOL 100 MG TAB PO SCH (09:17)
[2017-04-08] MEDS: VALSARTAN 80 MG TAB PO SCH (09:17)
--- NOTE | 2017-04-08 09:26 | History & Physical ---
History of Present Illness - Date of Service Date of Service for History & Physical: 04/08/17 - History of Present Illness Admitting Diagnosis: 1. R lower leg and foot Cellulitis. History of Present Illness: Mrs. Tang is an 81 y/o female with multiple co-morbidities who presented with inflammation, and redness of the right leg yesterday. 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 She has a wound care nurse who visits weekly to assess and care for her wounds. The patient has not noticed any other skin changes and reports no pain of the legs. The patient does have debility due to her neuropathy and ambulates with the use of a rolling walker. She reports reduction in ADLs as result and depends on her to assist with daily tasks. On arrival to the ED the patient was afebrile, with no white count and xray of the foot did not show any acute changes. The patient was started on IV Cleocin and admitted for further observation. On examination this morning the patient reports improvement in hyperpigmentation since admission. Travel Screening - Travel/Exposure Within Last 30 Days Have you traveled within the last 30 days?: No - Travel/Exposure Within Last Year Have you traveled outside the [place] in the last year?: No - Additonal Travel Details Have you been exposed to anyone with a communicable illness?: No - Travel Symptoms Symptom Screening: None Review of Systems Constitutional: Denies: Chills, Fever Eyes: Denies: Eye discharge ENT: Denies: Congestion Respiratory: Denies: Cough, Dyspnea Past Medical History - SOCIAL HISTORY Smoking Status: Former smoker Alcohol Use: None Drug Use: None - RESPIRATORY Hx Respiratory Disorders: Yes Hx Asthma: Yes (no meds -doing well.) Comment:: allergies cause cough occas - CARDIOVASCULAR Hx Cardio Disorders: Yes Hx Abnormal EKG: Yes Hx Cardiac Cath: Yes (cardiac stents x3) Hx Chest Pain: Yes (angina- used NTG 4 weeks ago) Hx Edema: Yes (feet) Hx Heart Attack: Yes (2003) Hx Hypertension: Yes (good control w meds) Hx Hypotension: Yes ("occas gets pretty low") Hx Coronary Artery Disease: Yes Hx Coronary Stent: Yes Comment:: high cholesterol - NEURO Hx Neuro Disorders: Yes Hx Neuropathy: Yes (feet & hands real bad) Hx TIA: Yes (long ago) - GI Hx GI Disorders: Yes Hx Abdominal Pain: Yes Hx Reflux: Yes (used to take nexium) Hx Irritable Bowel: Yes (constipation) Hx Nausea/Vomiting: Yes Hx Ulcer: Yes (long ago-has "sour stomach") Comment:: Lupus - Hx Genitourinary Disorders: Yes Hx Bladder Problem: Yes (leaky bladder) Hx Renal Disease: Yes (from high doses of Lyrica) Hx UTI: Yes Comment:: vidal cath removed 01/07 - ENDOCRINE Hx Endocrine Disorders: Yes Hx Thyroid Disease: Yes - MUSCULOSKELETAL Hx Musculoskeletal Disorders: Yes Hx Arthritis: Yes (hips/knees/back) Hx Fibromyalgia: Yes Hx Gout: Yes Hx Musculoskeletal Disease: Yes ("sharko disease"-feet) Hx Osteoporosis: Yes (was ") Comment:: back problems; leg pains, fracture right ankle - PSYCH Hx Psych Problems: Yes Hx Anxiety: Yes Hx Depression: Yes - HEMATOLOGY/ONCOLOGY Hx Hematology/Oncology Disorders: No Family Medical History Any Significant Family History?: No Hx Cancer: Father, Mother, Brother/Sister Hx Dementia: Mother Hx Heart Disease: Father Hx HTN: Father H&P Meds/Allergies - Allergies Allergies: Allergies Allergy/AdvReac Type Severity Reaction Status Date / Time adhesive Allergy Intermediate RASH Verified 04/07/17 16:01 phenobarbital Allergy Intermediate RASH Verified 04/07/17 16:01 Sulfa (Sulfonamide Allergy Intermediate VOMITING Verified 04/07/17 16:01 Antibiotics) bupropion HCl AdvReac Intermediate ALTERED Verified 04/07/17 16:01 [From Wellbutrin] MENTAL STATUS Penicillins AdvReac Intermediate NAUSEA AND Verified 04/07/17 16:01 VOMITING - Active Medications Active Medications: Current Medications Acetaminophen (Tylenol 500mg Tab) 500 mg PO Q6H PRN PRN Reason: PAIN/TEMP Last Admin: 04/08/17 08:02 Dose: 500 mg Hydrocodone Bitart/Acetaminophen (Ipava 10mg/325mg) 1 each PO BID PRN PRN Reason: Analgesia Last Admin: 04/07/17 20:54 Dose: 1 each Allopurinol (Zyloprim) 100 mg PO DAILY STEPHANIE Last Admin: 04/08/17 09:17 Dose: 100 mg Docusate Sodium (Colace) 100 mg PO QD PRN PRN Reason: Constipation Furosemide (Lasix) 40 mg PO DAILY [facility] Last Admin: 04/08/17 09:17 Dose: 40 mg Hydroxyzine Pamoate (Vistaril) 25 mg PO Q8H PRN PRN Reason: Allergy Symptoms Clindamycin Phosphate (Cleocin 600 [id number]) 600 mg in 50 mls @ 100 mls/ hr IVPB Q8H [facility] Last Admin: 04/08/17 03:29 Dose: 100 mls/hr Levothyroxine Sodium (Synthroid) 75 mcg PO DAILYTHY [facility] Last Admin: 04/08/17 06:32 Dose: 75 mcg Non-Formulary Medication (Estradiol [Estradiol]) 2 mg PO DAILY [facility] Ondansetron HCl (Zofran Odt) 4 mg SL Q6H PRN PRN Reason: NAUSEA/VOMITING Last Admin: 04/07/17 20:56 Dose: 4 mg Patient Own Med: (Dilaudid Pump 1mg) 1 each ASDIR [facility] Potassium Chloride (Klor-Con) 10 meq PO DAILY [facility] Last Admin: 04/08/17 09:17 Dose: 10 meq Pregabalin (Lyrica) 50 mg PO BID PRN PRN Reason: Analgesia Last Admin: 04/07/17 20:54 Dose: 50 mg Trazodone HCl (Desyrel) 200 mg PO QHS [facility] Last Admin: 04/07/17 23:29 Dose: 200 mg Valsartan (Diovan) 80 mg PO DAILY [facility] Last Admin: 04/08/17 09:17 Dose: 80 mg Venlafaxine HCl (Effexor Xr) 150 mg PO DAILY [facility] Last Admin: 04/08/17 09:17 Dose: 150 mg Physical Exam - Vital Signs Vital Signs: Vital Signs - Last 24 Hrs Temp Pulse Resp BP Pulse Ox 04/08/17 08:19 20 04/08/17 03:22 99.0 F 76 16 144/80 94 L 04/07/17 21:00 16 04/07/17 19:15 98.8 F 85 16 167/72 95 - General General Appearance: Alert, Oriented x3, Cooperative, No acute distress Limitations: No limitations - Head Head exam: Atraumatic, Normocephalic, Normal inspection - Eye Eye exam: Normal appearance, PERRL - Neck Neck exam: Normal inspection, Full ROM. negative: Tenderness - Respiratory Respiratory exam: Normal lung sounds bilaterally. negative: Respiratory distress - Cardiovascular Cardiovascular Exam: Regular rate, Normal rhythm, Normal heart sounds Peripheral Pulses: 1+: Radial (R), Radial (L), Dorsalis Pedis (R), Dorsalis Pedis (L) - GI/Abdominal GI/Abdominal exam: Soft, Normal bowel sounds. negative: Tenderness - Extremities Extremities exam: Normal inspection (There is erythema and warmth to the anterior R lower leg and foot. There does appear to be a worsening foot ulcer to the R foot plantar surface over the ball of the foot. There also notable hyperpigmentation of the right lower extremity.), Pedal edema. negative: Tenderness Results - Labs Result Diagrams: 04/07/17 16:42 04/07/17 16:42 VTE H&P Assessment - Risk for VTE Risk for VTE: Yes Risk Level: High Risk Assessment Date: 04/08/17 Risk Assessment Time: 09:25 VTE Orders Placed or Will Be Placed: Yes Plan - Inpatient Certification Inpatient Certification: Admit to inpatient care: Based on my medical assessment, after consideration of patient's risk factors (age, co-morbidities and patient presenting symptoms and acuity), I expect that this patient will remain in the hospital greater than or equal to two midnights and that the services needed warrant inpatient care because: Patient Risk Factors: Fall/cellulitis I certify that my determination is in accordance with my understanding of Medicare requirements for reasonable and necessary inpatient services. - Detailed Diagnosis and Plan (1) Cellulitis of right lower extremity Current Visit: Yes Status: Acute Base Code: L03.115 - CELLULITIS OF RIGHT LOWER LIMB Comment: 04/08 - no fever, tachychardia or elevation in white count. CRP 5. Hyperpigmentation of ankle up to mid calf. Repeat CBC w/ diff in the morning. - right foot x ray: does not show any acute inflammation or bone involvement. - cont Clindamycin 600mg Q8H PRN, wound dressing changes daily with topical application of aquapor. Pt on pain pump with dilaudid 1mg Q4H, Lasix 40mg daily. - Podiatry appt this MondayApril 11 w/ Dr. Sandhu (2) HTN (hypertension) Current Visit: No Status: Acute Base Code: I10 - ESSENTIAL (PRIMARY) HYPERTENSION Comment: 04/08 - BP 144/80 - patient on Diovan 80mg daily, Lasix 40mg daily (3) Chronic pain Current Visit: No Status: Acute Base Code: G89.29 - OTHER CHRONIC PAIN Comment: 04/08 - patient has Dilaudid pump dosing at 1 mg Q4H PRN. - on Lyrica and recently started Baclofen 10mg TID PRN. (4) Hypothyroidism Current Visit: No Status: Acute Base Code: E03.9 - HYPOTHYROIDISM, UNSPECIFIED Comment: - cont home dose of Levothyroxine. (5) DVT prophylaxis Current Visit: Yes Status: Acute Base Code: [id number] - Comment: 04/08 - Lovenox 40mg daily (6) Full code status Current Visit: No Status: Acute Base Code: Z78.9 - OTHER SPECIFIED HEALTH STATUS Comment: 07/20- pt remained full code - Disposition Repeat CBC w/ diff in am. Cont IV antibiotics and continued monitoring for worsening of symptoms. Discussed the possibility of rehab or longer course of IV antibiotics to provide for better wound healing/care. She was not too keen on the idea and will discuss further.
[2017-04-08] MEDS: BACLOFEN 10 MG TABLET PO PRN ×2 (10:46→17:51)
[2017-04-08] MEDS: POLYETHYLENE GLY 17 GM PACKET PO PRN (10:46)
[2017-04-08] MEDS: ENOXAPARIN 40 MG/0.4 ML SYR SQ SCH (11:21)
[2017-04-08] MEDS: HYDROCODONE/APAP 10/325 TABLET PO PRN (18:56)
[2017-04-08] MEDS: PREGABALIN 50 MG CAPSULE PO PRN (22:19)
[2017-04-08] MEDS: TRAZODONE 50 MG TABLET PO SCH (22:19)
[2017-04-08] MEDS: DOCUSATE SODIUM 100 MG CAPSULE PO PRN (22:19)
--- NOTE | 2017-04-08 23:19 | RADIOLOGY REPORT ---
EXAM: FOOT, RIGHT 3 VIEWS HISTORY: INCREASED SWELLING AND REDNESS RIGHT FOOT SINCE LAST NIGHT. TECHNIQUE: Three views right foot. COMPARISON: Three-view right foot series 12/02/16. FINDINGS: Post-op changes involving the second and fifth toes again seen as before with amputation of the fifth toe at the level of the MTP joint and at the second toe at the level of the mid portion of the middle phalanx. Some erosive changes in the distal end of the distal phalanx of the great toe has not progressed appreciably in the interval. Diffuse osteopenia is seen consistent with osteoporosis. Post-op ankle fusion as before. Oval radiolucency in the calcaneus again noted similar to before. Plantar calcaneal spur similar to before. Some mild diffuse soft tissue swelling involving the right foot. No definite acute fracture or new destructive lesion identified involving the right foot when comparison is made with the prior study. IMPRESSION: 1. SOMEWHAT GREATER SOFT TISSUE SWELLING DIFFUSELY INVOLVING THE RIGHT FOOT COMPARED WITH 12/02/16. 2. POST-OP CHANGES INVOLVING THE SECOND AND FIFTH TOES BEFORE. 3. SOME EROSION IN THE TUFT OF THE DISTAL PHALANX OF THE GREAT TOE BEFORE. 4. POST-OP CHANGES AT THE ANKLE WITH A FUSION OF THE ANKLE JOINT BEFORE. 5. OVAL RADIOLUCENCY IN THE CALCANEUS BEFORE. [facility]BER: [id number] [facility]
[2017-04-09] MEDS: CLINDAMYCIN 600MG/50ML PREMIX 600 MG/50 ML BAG IVPB SCH ×3 (03:31→19:00)
[2017-04-09] MEDS: BACLOFEN 10 MG TABLET PO PRN ×2 (04:08→16:17)
[2017-04-09] MEDS: LEVOTHYROXINE SODIUM 75 MCG TABLET PO SCH (06:13)
[2017-04-09 06:59] LABS: BASO % 0.1 % (0-6); EOS % 2.3 % (0-6); GRAN % 55.3 % (47-80); HEMATOCRIT 38.9 % (35.0-47.0); HEMOGLOBIN 12.1 gm/dl (11.6-16.0); MEAN CELL VOLUME 100.5 fl (81-97); MEAN CORPUSCULAR HEMOGLOBIN 31.3 pg (27-33); MEAN CORPUSCULAR HGB CONC 31.1 g/dl (32-36); MEAN PLATELET VOLUME 9.4 fl (7.4-10.4); MONO % 9.3 % (0-9); PLATELET COUNT 248 K/uL (130-400); RED BLOOD COUNT 3.87 M/uL (3.80-5.40); WHITE BLOOD COUNT W/O DIFF 7.3 K/uL (4.2-12.2)
[2017-04-09] MEDS: ALLOPURINOL 100 MG TAB PO SCH (09:17)
[2017-04-09] MEDS: VALSARTAN 80 MG TAB PO SCH (09:17)
[2017-04-09] MEDS: POTASSIUM CHLORIDE 10 MEQ TAB PO SCH (09:17)
[2017-04-09] MEDS: FUROSEMIDE 40 MG TABLET PO SCH (09:17)
[2017-04-09] MEDS: VENLAFAXINE ER 75 MG CAPSULE PO SCH (09:18)
[2017-04-09] MEDS: ENOXAPARIN 40 MG/0.4 ML SYR SQ SCH (09:18)
[2017-04-09] MEDS: ESTRADIOL 2 MG PO SCH (10:15)
[2017-04-09] MEDS: ACETAMINOPHEN 500 MG TABLET PO PRN (11:05)
[2017-04-09] MEDS: POLYETHYLENE GLY 17 GM PACKET PO PRN (11:06)
--- NOTE | 2017-04-09 11:40 | Physician Progress Note ---
Subjective - Date Date of Physician Progress Note: 04/09/17 - Subjective Subjective Comment: The patient is doing well and sitting in the bedside chair this morning. She has no new complaint. Objective - Vital Signs Vital Signs: Vital Signs - Last 24 Hrs Temp Pulse Resp BP Pulse Ox 04/09/17 08:30 20 04/09/17 03:00 98.7 F 73 18 151/76 90 L 04/08/17 21:00 18 04/08/17 18:51 98.6 F 83 18 172/75 92 L - General General Appearance: Alert, Oriented x3, Cooperative, No acute distress Limitations: No limitations - Head Head exam: Atraumatic, Normocephalic, Normal inspection - Eye Eye exam: Normal appearance, PERRL - Neck Neck exam: Normal inspection, Full ROM. negative: Tenderness - Respiratory Respiratory exam: Normal lung sounds bilaterally. negative: Respiratory distress - Cardiovascular Cardiovascular Exam: Regular rate, Normal rhythm, Normal heart sounds Peripheral Pulses: 1+: Radial (R), Radial (L), Dorsalis Pedis (R), Dorsalis Pedis (L) - GI/Abdominal GI/Abdominal exam: Soft, Normal bowel sounds. negative: Tenderness - Extremities Extremities exam: Normal inspection (There is erythema and warmth to the anterior R lower leg and foot. There does appear to be a worsening foot ulcer to the R foot plantar surface over the ball of the foot. There also notable hyperpigmentation of the right lower extremity.), Pedal edema. negative: Tenderness Assessment and Plan - Assessment and Plan (1) Cellulitis of right lower extremity Current Visit: Yes Status: Acute Base Code: L03.115 - CELLULITIS OF RIGHT LOWER LIMB Comment: 3/4 - no fever, tachychardia or elevation in white count. CRP 5. Hyperpigmentation of ankle up to mid calf. Repeat CBC w/ diff in the morning. - right foot x ray: does not show any acute inflammation or bone involvement. - cont Clindamycin 600mg Q8H PRN, wound dressing changes daily with topical application of aquapor. Pt on pain pump with dilaudid 1mg Q4H, Lasix 40mg daily. - Podiatry appt this MondayApril 11 w/ Dr. Sandhu (2) HTN (hypertension) Current Visit: No Status: Acute Base Code: I10 - ESSENTIAL (PRIMARY) HYPERTENSION Comment: 3/4 - patient on Diovan 80mg daily, Lasix 40mg daily (3) Chronic pain Current Visit: No Status: Acute Base Code: G89.29 - OTHER CHRONIC PAIN Comment: 3 - patient has Dilaudid pump dosing at 1 mg Q4H PRN. - on Lyrica and recently started Baclofen 10mg TID PRN. (4) Hypothyroidism Current Visit: No Status: Acute Base Code: E03.9 - HYPOTHYROIDISM, UNSPECIFIED Comment: 04/09 - cont home dose of Levothyroxine. (5) DVT prophylaxis Current Visit: Yes Status: Acute Base Code: [id number] - Comment: 04/09 - Lovenox 40mg daily (6) Full code status Current Visit: No Status: Acute Base Code: Z78.9 - OTHER SPECIFIED HEALTH STATUS Comment: 04/09 - pt remained full code - Disposition Disposition: Cont IV antibiotics and continued monitoring for worsening of symptoms. Results - Labs Result Diagrams: 04/09/17 05:50 04/07/17 16:42 Labs Last 24 Hours: Laboratory Results - last 24 hr 04/09/17 05:50 WBC 7.3 RBC 3.87 Hgb 12.1 Hct 38.9 MCV 100.5 H MCH 31.3 MCHC 31.1 L RDW 14.0 Plt Count 248 MPV 9.4 Gran % 55.3 Lymphocytes % 33.0 Monocytes % 9.3 H Eosinophils % 2.3 Basophils % 0.1 DVT/PE Assessment - Risk for VTE Risk for VTE: No Risk Level: High Risk Assessment Date: 04/08/17 Risk Assessment Time: 09:25 VTE Orders Placed or Will Be Placed: Yes - Active Medicaitons Current Medications: Current Medications Acetaminophen (Tylenol 500mg Tab) 500 mg PO Q6H PRN PRN Reason: PAIN/TEMP Last Admin: 04/09/17 11:05 Dose: 500 mg Hydrocodone Bitart/Acetaminophen (Reyno 10mg/325mg) 1 each PO BID PRN PRN Reason: Analgesia Last Admin: 04/08/17 18:56 Dose: 1 each Allopurinol (Zyloprim) 100 mg PO DAILY STEPHANIE Last Admin: 04/09/17 09:17 Dose: 100 mg Baclofen (Lioresal) 10 mg PO TID PRN PRN Reason: SPASMS Last Admin: 04/09/17 04:08 Dose: 10 mg Docusate Sodium (Colace) 100 mg PO QD PRN PRN Reason: Constipation Last Admin: 04/08/17 22:19 Dose: 100 mg Enoxaparin Sodium (Lovenox) 40 mg SQ DAILY [facility] Last Admin: 04/09/17 09:18 Dose: 40 mg Furosemide (Lasix) 40 mg PO DAILY [facility] Last Admin: 04/09/17 09:17 Dose: 40 mg Hydroxyzine Pamoate (Vistaril) 25 mg PO Q8H PRN PRN Reason: Allergy Symptoms Clindamycin Phosphate (Cleocin 600 [id number]) 600 mg in 50 mls @ 100 mls/ hr IVPB Q8H [facility] Last Admin: 04/09/17 11:06 Dose: 100 mls/hr Levothyroxine Sodium (Synthroid) 75 mcg PO DAILYTHY [facility] Last Admin: 04/09/17 06:13 Dose: 75 mcg Ondansetron HCl (Zofran Odt) 4 mg SL Q6H PRN PRN Reason: NAUSEA/VOMITING Last Admin: 04/07/17 20:56 Dose: 4 mg Patient Own Med: (Dilaudid Pump 1mg) 1 each MC ASDIR [facility] Patient Own Med: Estradiol 2 Mg Tablet 1 each PO DAILY [facility] Last Admin: 04/09/17 10:15 Dose: 1 each Polyethylene Glycol (Miralax) 17 gm PO DAILY PRN PRN Reason: Constipation Last Admin: 04/09/17 11:06 Dose: 17 gm Potassium Chloride (Klor-Con) 10 meq PO DAILY [facility] Last Admin: 04/09/17 09:17 Dose: 10 meq Pregabalin (Lyrica) 50 mg PO BID PRN PRN Reason: Analgesia Last Admin: 04/08/17 22:19 Dose: 50 mg Trazodone HCl (Desyrel) 200 mg PO QHS [facility] Last Admin: 04/08/17 22:19 Dose: 200 mg Valsartan (Diovan) 80 mg PO DAILY [facility] Last Admin: 04/09/17 09:17 Dose: 80 mg Venlafaxine HCl (Effexor Xr) 150 mg PO DAILY [facility] Last Admin: 04/09/17 09:18 Dose: 150 mg AMI Plan - Labs Result Diagrams: 04/09/17 05:50 04/07/17 16:42
[2017-04-09] MEDS: HYDROCODONE/APAP 10/325 TABLET PO PRN (16:17)
[2017-04-09] MEDS: 0.9 % SODIUM CHLORIDE 10ML SYR IVP SCH (19:30)
[2017-04-09] MEDS: DOCUSATE SODIUM 100 MG CAPSULE PO PRN (21:55)
[2017-04-09] MEDS: PREGABALIN 50 MG CAPSULE PO PRN (21:55)
[2017-04-09] MEDS: TRAZODONE 50 MG TABLET PO SCH (21:55)
[2017-04-10] MEDS: CLINDAMYCIN 600MG/50ML PREMIX 600 MG/50 ML BAG IVPB SCH ×2 (03:34→10:31)
[2017-04-10] MEDS: 0.9 % SODIUM CHLORIDE 10ML SYR IVP SCH (04:00)
--- NOTE | 2017-04-10 06:29 | Discharge Summary ---
Providers Discharge Summary Date: 04/10/17 Date of admission: 04/07/17 19:06 Attending physician: MOSES MENEZES Primary care physician: STEPHANIE BENZ Physical Exam - Vital Signs Vital Signs: Vital Signs - Last 24 Hrs Temp Pulse Resp BP Pulse Ox 04/10/17 03:00 97.4 F L 76 16 150/75 92 L 04/09/17 21:00 64 18 04/09/17 19:00 98.7 F 64 18 139/76 93 L 04/09/17 11:00 98.6 F 68 18 131/71 93 L 04/09/17 08:30 20 - General General Appearance: Alert, Oriented x3, Cooperative, No acute distress Limitations: No limitations - Head Head exam: Atraumatic, Normocephalic, Normal inspection - Eye Eye exam: Normal appearance, PERRL - Neck Neck exam: Normal inspection, Full ROM. negative: Tenderness - Respiratory Respiratory exam: Normal lung sounds bilaterally. negative: Respiratory distress - Cardiovascular Cardiovascular Exam: Regular rate, Normal rhythm, Normal heart sounds Peripheral Pulses: 1+: Radial (R), Radial (L), Dorsalis Pedis (R), Dorsalis Pedis (L) - GI/Abdominal GI/Abdominal exam: Soft, Normal bowel sounds. negative: Tenderness - Extremities Extremities exam: Normal inspection (There is erythema and warmth to the anterior R lower leg and foot. There does appear to be a worsening foot ulcer to the R foot plantar surface over the ball of the foot. There also notable hyperpigmentation of the right lower extremity.), Pedal edema. negative: Tenderness Hospitalization - Hospitalization Admission Diagnosis: 1. R lower leg and foot Cellulitis. - Problem List/Discharge Diagnosis (1) Cellulitis of right lower extremity Current Visit: Yes Status: Acute Base Code: L03.115 - CELLULITIS OF RIGHT LOWER LIMB Comment: 04/10 - no fever, tachychardia or elevation in white count. CRP 5. Hyperpigmentation of ankle up to mid calf has improved since admission. - cont Clindamycin 600mg Q8H PRN, wound dressing changes daily with topical application of aquapor. Pt on pain pump with dilaudid 1mg Q4H, Lasix 40mg daily. - Podiatry appt this MondayApril 11 w/ Dr. Sandhu (2) HTN (hypertension) Current Visit: No Status: Acute Base Code: I10 - ESSENTIAL (PRIMARY) HYPERTENSION Comment: 04/10 - cont Diovan 80mg daily, Lasix 40mg daily (3) Chronic pain Current Visit: No Status: Acute Base Code: G89.29 - OTHER CHRONIC PAIN Comment: 04/10 - patient has Dilaudid pump dosing at 1 mg Q4H PRN. - cont Baclofen 10mg TID PRN. (4) Hypothyroidism Current Visit: No Status: Acute Base Code: E03.9 - HYPOTHYROIDISM, UNSPECIFIED Comment: 04/10 - on Levothyroxine. (5) DVT prophylaxis Current Visit: Yes Status: Acute Base Code: [id number] - Comment: 04/10 - Lovenox 40mg daily (6) Full code status Current Visit: No Status: Acute Base Code: Z78.9 - OTHER SPECIFIED HEALTH STATUS Comment: 04/10 - pt remained full code - Disposition Cont IV antibiotics and continued monitoring for worsening of symptoms. - Hospitalization Course Hospital Course: Mrs. Tang is an 81 y/o female with multiple co-morbidities who presented with inflammation, and redness of the right leg yesterday. 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 She has a wound care nurse who visits weekly to assess and care for her wounds. The patient has not noticed any other skin changes and reports no pain of the legs. The patient does have debility due to her neuropathy and ambulates with the use of a rolling walker. She reports reduction in ADLs as result and depends on her to assist with daily tasks. On arrival to the ED the patient was afebrile, with no white count and xray of the foot did not show any acute changes. The patient was started on IV Cleocin and admitted for further observation. On examination this morning the patient reports improvement in hyperpigmentation since admission. 04/09 - the patient's right leg has improved somewhat but there is still evidence of swelling and erythema. The patient due to her neuropathy has no sensory response to examination. The wounds on the plantar surfaces of both feet appear to be healing well and dressings clean. No white count elevation on repeat CBC. 04/10 Abnormal Labs: Abnormal Lab Results 04/09/17 Range/Units 05:50 MCV 100.5 H (81-97) fl MCHC 31.1 L (32-36) g/dl Monocytes % 9.3 H (0-9) % Condition at Discharge: (2) Stable Discharge Medications - Discharge Medications Prescriptions: Baclofen [Lioresal] 10 mg PO TID PRN #30 tab PRN Reason: Spasms Clindamycin HCl [Cleocin HCl] 300 mg PO Q6H #12 capsule Home Medications: Ambulatory Orders Dilaudid Pump 1 mg IV DAILY 02/14/14 [Last Taken 04/07/17] Baclofen [Lioresal] 10 mg PO TID PRN #30 tab 04/10/17 [Last Taken Unknown] Clindamycin HCl [Cleocin HCl] 300 mg PO Q6H #12 capsule 04/10/17 [Last Taken Unknown] Pregabalin [Lyrica] 50 mg PO BID PRN capsule 04/10/17 [Last Taken Unknown] Discharge Plan - Discharge Instructions Instructions: Cellulitis (DC) Additional Instructions: Continue antibiotics x 3 days Wound care and dressing changes daily, off loading when possible Follow up with Dr. Marie in clinic on 04/11 Follow up with Darleen Monday 04/17, 11:20 Quality Measures - Quality Measures Quality Measures: Advance Directives, Coronary Artery Disease: Antiplatelet Therapy, Documentation of Current Medications in Medical Record, Elder Maltreatment Screen and Follow-Up Plan, Heart Failure, Screening for High Blood Pressure and F/U Documented - Current Medications Quality Measure: Measure #130: Documentation of Current Medications Documentation of Current Medications: <Current Medications Documented/Reviewed> [G8427] - Blood Pressure Screening Quality Measure: Screening for High Blood Pressure and Follow-Up Documented Does Patient Have Any of the Following: Active Dx of HTN Blood Pressure Classification: Hypertensive Reading Systolic Measurement: 150 Diastolic Measurement: 75 Screening for High Blood Pressure: Patient Exclusion, Hx of HTN [G9744] - Coronary Artery Disease Quality Measure: Measure #6: Coronary Artery Disease (CAD) Antiplatelet Therapy: Not Prescribed, Reason not Specified [[age]F with 8P] - Heart Failure (JAIME/ARB Therapy) Quality Measure: Heart Failure Left Ventricular Systolic Function: Unknown JAIME Inhibitor or ARB Therapy for LVSD: Not Eligible - Heart Failure (Beta-socorro Therapy) Quality Measure: Heart Failure Left Ventricular Systolic Function: Unknown Beta-Socorro Therapy for LVEF < 40%: Not Eligible - Advance Directives Quality Measure: Measure #47: Care Plan Advance Directives Established: No Advance Directives Information Provided To Patient: No Advance Directives on File: No Living Will: No Power of Chain Offbearer: No Advance Care Planning: <Care Plan/Decision Maker Documented; Discussed & Documented> [0713F] - Elder Abuse Suspicion Index Screening: Elder Abuse Suspicion Index Screening Rely on people for bathing, dressing, shopping, banking, etc: Yes Prevented from getting food, clothes, medication, etc: No Made to feel shamed or threatened by someone: No Forced to sign papers or use money against will: No Feel afraid, touched in ways not wanted or hurt physically: No Poor eye contact, withdrawn, malnourished, cuts or bruises: No Screening Result: Negative result EASI Reference Information: Best CHAO, Lisa C, Sheri Felton, Michael Loving.Development and validation of a tool to assist physicians identification of elder abuse: The Elder Abuse Suspicion Index (EASI ). Journal of Elder Abuse and Neglect, 2008; 20 (3): 276-300. - Elder Maltreatment Screen Quality Measures: Elder Maltreatment Screen and Follow-Up Plan Elder Maltreatment Screen: <Negative, No Follow-Up Plan Required> [G6965]
[2017-04-10] MEDS: LEVOTHYROXINE SODIUM 75 MCG TABLET PO SCH (06:30)
[2017-04-10] MEDS: ENOXAPARIN 40 MG/0.4 ML SYR SQ SCH (09:26)
[2017-04-10] MEDS: POTASSIUM CHLORIDE 10 MEQ TAB PO SCH (09:26)
[2017-04-10] MEDS: VALSARTAN 80 MG TAB PO SCH (09:27)
[2017-04-10] MEDS: FUROSEMIDE 40 MG TABLET PO SCH (09:27)
[2017-04-10] MEDS: ALLOPURINOL 100 MG TAB PO SCH (09:27)
[2017-04-10] MEDS: VENLAFAXINE ER 75 MG CAPSULE PO SCH (09:27)
[2017-04-10] MEDS: ESTRADIOL 2 MG PO SCH (09:32)
== END 2017-04-10 11:17 | disposition home health service (06) | DRG 603 ==
LOC: ER 15:42 → MEDSURG 19:06
PROVIDERS: ADMIT Internal Medicine; ATTEND Internal Medicine
DX: M79.671 Pain in right foot (principal); E78.00 Pure hypercholesterolemia, unspecified; L03.115 Cellulitis of right lower limb; L97.419 Non-pressure chronic ulcer of right heel and midfoot with unspecified severity; I10 Essential (primary) hypertension; E03.9 Hypothyroidism, unspecified; G89.29 Other chronic pain; G60.9 Hereditary and idiopathic neuropathy, unspecified; M79.7 Fibromyalgia; Z87.891 Personal history of nicotine dependence
CPT/HCPCS: 80048; 85025; 86140; 96365; 96366; 99223; 99232; 99239; 99285; J1650